=== PATIENT | female | born 1980 | race Caucasian/White ===

== ENCOUNTER → 2020-11-16 09:07 | Outpatient (CLI) | payer OTHER, SELFPAY | PROVIDERS: PCP Internal Medicine; Visit Provider Physician Assistant | DX: J01.20 Acute ethmoidal sinusitis, unspecified (principal) | CPT/HCPCS: 87070 ==

== ENCOUNTER → 2020-11-22 15:37 | Outpatient (CLI) | payer OTHER, SELFPAY ==
--- NOTE | 2020-11-22 15:38 | DI.US.S_ITS ---
PROCEDURE: US SOFT TISSUE HEAD AND NECK INDICATIONS: NONTENDER CERVICAL LYMPHADENOPATHY TECHNIQUE: Real-time scanning was performed of the neck region of interest, with image documentation. COMPARISON: None. FINDINGS: The patient assisted in directing the foamite mixer to the exact area of current clinical concern. There is a right cervical lymph node that measures 4 x 7 x 9 mm, normal in size, and also normal in morphology and echotexture. No adjacent enlarged or inflamed nodes are seen. IMPRESSION: Benign appearing lymph node at the area of current clinical concern. Dictated by: Jung Reyes M.D. on 11/22/2020 at 16:41 Approved by: Jung Reyes M.D. on 11/22/2020 at 16:42
== END ==
PROVIDERS: PCP Internal Medicine; Referring Provider Physician Assistant; Visit Provider Physician Assistant
DX: R59.0 Localized enlarged lymph nodes (principal)
CPT/HCPCS: 76536